=== PATIENT | female | born 1985 | race Asian ===

== ENCOUNTER 2023-09-26 16:09 | Outpatient (CLI) | payer BC, SELFPAY | END 2023-09-26 16:10 | disposition home or self-care (01) | LOC: NFLDREF 16:12 | PROVIDERS: PCP Family Medicine; Visit Provider Registered Nurse | DX: Z01.419 Encounter for gynecological examination (general) (routine) without abnormal findings (principal); Z13.6 Encounter for screening for cardiovascular disorders | CPT/HCPCS: 80061 ==

== ENCOUNTER 2023-11-28 09:23 | Emergency (ER) | payer BC, SELFPAY ==
[2023-11-28 09:28] VITALS: BP 146/82; PULSE 82; RESP 16; TEMP 36.7; O2SAT 99; BMI 24.6
--- NOTE | 2023-11-28 09:48 | XR_ITS ---
Patient: ANDREW Wheeler EM Facility:?[facility] Patient ID:?[id number] Site Patient ID:?[id number]. Site :?[id number] Study:?XRay-Chest PA & LATERAL-11/28/2023 10:19:52 AM Ordering Physician:DANIEL Final Report: Indication: Chest pain Technique: Chest 2 views Comparison: None Findings/Impression: Cardiovascular and mediastinum: Heart size and vasculature are normal in caliber and appearance. Mediastinum is within normal limits. Lungs and pleural spaces: Lungs are clear. No sign of infiltrate or mass. No sign of pleural effusion. No pneumothorax. Bones and soft tissues: No significant findings. Dictated by Sergio Esteban MD @ 11/28/2023 10:41:44 AM Signed by:?Sergio Esteban MD @11/28/2023 10:41:44 AM (Electronic Signature)
--- NOTE | 2023-11-28 10:09 | ED_ITS ---
HPI - Chest Pain General Date Seen: 11/28/23 Chief Complaint: Chest Pain Stated Complaint: Numbness L arm, chest pain, tightness in neck Time Seen by Provider: 11/28/23 09:34 Source: patient Mode of arrival: ambulatory Limitations: no limitations History of Present Illness HPI narrative: Patient is a 38-year-old female presenting for chest pain, left neck pain, left arm numbness and tingling. Patient states for the past 3 days she has been having intermittent chest pain. Usually East occurs in the morning then goes away. Did have a chest pain this morning and has since resolved. She has also been having intermittent left arm numbness and tingling. She has had these arm symptoms before and has had the fully evaluated. They were unable to come up with the diagnosis. She states this feels similar to her previous episodes of arm numbness. She does notice she felt some tightness in the left side of her neck. Took some Tylenol yesterday but has not taken any medicine today. Denies shortness of breath, vision changes, weakness, numbness, abdominal pain, diarrhea, constipation. Did have a headache earlier that has since resolved. Is not currently taking any medications. No previous medical problems. No other concerns noted at this time Related Data Home Medications Medication Instructions Recorded Confirmed No Known Home Medications 06/20/22 09/26/23 Allergies Allergy/AdvReac Type Severity Reaction Status Date / Time No Known Allergies Allergy Unknown Verified 09/26/23 15:43 Review of Systems Status of ROS Reports: 10 or more systems reviewed and unremarkable except as noted in History and below [facility] Medical History Gestational diabetes mellitus (GDM) ?O24.419 - Gestational diabetes mellitus in , unspecified control (ICD-10) Surgical History Status post tubal ligation at time of delivery, current hospitalization ?O80 - Encounter for full-term uncomplicated delivery (ICD-10) ?Z30.2 - Encounter for sterilization (ICD-10) Status post repeat low transverse section ?Z98.891 - History of uterine scar from previous surgery (ICD-10) History of right oophorectomy ?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, unilateral (ICD-10) Family History Mother High blood pressure High cholesterol Social History What is your current living situation?: I presently have a place to live Problems where you live: no known problems In the past 12 months, utilities in danger of being shut off: no In past 12 months, lack of transportation kept you from medical appts, meetings, work, or getting things needed for daily living: no In the past 12 mos, have been you worried that your food would run out before you had money to buy more?: never true In the past 12 mos, the food you bought just didn't last and you didn't have money to buy more?: never true Smoking Status: Never smoker Do you use any of these nicotine containing products: None Second hand tobacco smoke exposure: No How often do you have a drink containing alcohol: never AUDIT-C Alcohol total score: 0 Non-prescribed substance use: denies use How often does anyone, including family, friends and others, physically hurt you : never How often does anyone, including family, friends and others, insult or talk down to you: never How often does anyone, including family, friends and others, threaten you with harm: never How often does anyone, including family, friends and others, scream or curse at you: never Little interest or pleasure in doing things: more than half the days Feeling down, depressed, or hopeless: not at all service: No Exam Narrative Exam Narrative: Const: Well-nourished, Well-developed, in mild distress Eyes: PERRL, no conjunctival injection, and symmetrical lids HENT: Atraumatic external nose and ears. Moist mucous membranes. Neck: Symmetric, trachea midline, No thyromegaly. CVS: RRR, No murmurs or gallops. Peripheral pulses 2+ and equal in all extremities RESP: Unlabored respiratory effort. Clear to auscultation bilaterally. GI: Nontender/Nondistended, No rebound or guarding. MSK:Extremities w/o deformity, Normal Active ROM, no neck tenderness Skin: Warm, Dry. No rashes or lesions. Neuro: Normal Muscle tone, No focal neurological deficits. Psych: Awake, Alert, & Oriented x3. Appropriate mood and affect. Const Vital Signs, click to edit/add: Vital Signs - 24 hr 11/28/23 09:28 Temperature 98.0 F Pulse Rate [Pulse Oximeter] 82 Respiratory Rate 16 Blood Pressure [Right Upper Arm] 146/82 H Pulse Oximetry 99 Oxygen Delivery Method Room Air Course Vital Signs Vital signs: Initial Vital Signs Temperature 98.0 F 11/28/23 09:28 Temperature Source Temporal Artery Scan 11/28/23 09:28 Pulse Rate 82 11/28/23 09:28 Pulse Rhythm Regular 11/28/23 09:28 Respiratory Rate 16 11/28/23 09:28 Blood Pressure 146/82 H 11/28/23 09:28 Blood Pressure Mean 103 11/28/23 09:28 Blood Pressure Position Sitting 11/28/23 09:28 Pulse Oximetry 99 11/28/23 09:28 Oxygen Delivery Method Room Air 11/28/23 09:28 Vital Signs Temperature 98.0 F 11/28/23 09:28 Pulse Rate 82 11/28/23 09:28 Respiratory Rate 16 11/28/23 09:28 Blood Pressure 146/82 H 11/28/23 09:28 Pulse Oximetry 99 11/28/23 09:28 Oxygen Delivery Method Room Air 11/28/23 09:28 Temperature 98.0 F 11/28/23 09:28 Pulse Rate 82 11/28/23 09:28 Respiratory Rate 16 11/28/23 09:28 Blood Pressure 146/82 H 11/28/23 09:28 Pulse Oximetry 99 11/28/23 09:28 Oxygen Delivery Method Room Air 11/28/23 09:28 Medications Administered Medications: Discontinued Medications Generic Name Dose Route Start Last Admin Trade Name Freq PRN Reason Stop Dose Admin Ketorolac Tromethamine 15 mg 11/28/23 10:10 11/28/23 10:34 Ketorolac 15 Mg/Ml Inj IVP 11/28/23 10:11 15 mg ONCE ONE Administration MDM - Chest Pain MDM Narrative Medical decision making narrative: The patient is a 38-year-old female presenting to emergency department for multiple complaints. With left arm numbness and tingling is a chronic issue for her and is not any different than her previous episodes and is not believe it needs further workup at this time. We will evaluate her for chest pain. She is PERC negative and PE is unlikely. Chest x-ray order to look for signs of pneumonia or pneumothorax or other intrathoracic issues. Also ordered a EKG, troponin, CBC, CMP, test, COVID/flu/RSV. Toradol given for the neck pain. She is having no midline tenderness and concerned she might in symptoms have been going on he for a few days so I do not believe I that imaging is necessary. Patient's neck pain went away for the Toradol. She is feeling much better at this time. Lab work all returned showing no concerning symptoms. Hemoglobin sl ightly low but it has been in the 10 range before. I do not believe this is causing her symptoms. She is otherwise doing well at this time. A COVID test flu/RSV is negative. Do not believe there is any emergent causes of her symptoms at this time and she can discharge home with follow-up with the primary care provider if symptoms persist. She is agreeable this bad. Lab Data Labs: Lab Results 11/28/23 11/28/23 Range/Units 10:05 10:39 WBC 6.34 (4.50-11.00) K/uL RBC 4.70 (4.00-5.20) m/uL Hgb 9.4 L (12.0-16.0) gm/dL Hct 32.2 L (33.0-51.0) % MCV 69 L (80-100) fL MCH 20 L (26-34) pg MCHC 29 L (32-36) gm/dL RDW Coeff of Felisa 16.4 H (11.5-15.5) % Plt Count 392 (140-440) K/uL Neut % (Auto) 52.2 (42.0-72.0) % Lymph % (Auto) 37.5 (20-44) % Graham % (Auto) 6.5 (0.0-11.0) % Eos % (Auto) 2.7 (0.0-7.0) % Baso % (Auto) 0.6 (0.0-3.0) % Neut # (Auto) 3.31 (1.7-7.0) K/uL Lymph # (Auto) 2.38 (0.90-2.90) K/uL Graham # (Auto) 0.40 (0.00-0.90) K/UL Eos # (Auto) 0.17 (0.00-0.50) K/uL Baso # (Auto) 0.04 (0.00-0.30) K/uL Abs Immat Gran (auto) 0.03 (0.00-0.30) K/uL Imm/Tot Granulo (auto) 0.5 % Diff Slide Review Acceptable Review (Acceptable) Sodium 139 (135-149) mmol/L Potassium 3.5 L (3.6-5.1) mmol/L Chloride 103 (96-114) mmol/L Carbon Dioxide 25 (20-32) mmol/L Anion Gap 11 (7-15) mEq/L BUN 15 (5-24) mg/dL Creatinine 0.5 (0.5-1.5) mg/dL Estimated Creat Clear 112.86 Estimated GFR 122 ml/min Glucose 96 (60-115) mg/dL Calcium 9.8 (8.4-10.6) mg/dL Total Bilirubin 0.4 (0.1-1.5) mg/dL AST 28 (12-35) U/L ALT 19 (4-35) U/L Alkaline Phosphatase 41 (40-150) U/L Total Protein 8.6 H (6.0-8.3) g/dL Albumin 4.7 (3.3-5.0) g/dL HCG, Qual Negative (Negative) SARS-CoV-2 (PCR) Negative SARS-CoV-2 (Negative) Influenza Type A (PCR) Negative PCR FLU A (Negative) Influenza Type B (PCR) Negative PCR FLU B (Negative) RSV (PCR) Negative PCR RSV (Negative) POC Troponin I 0.00 L (0.01-0.04) ng/ml ECG Data Attestation: I personally reviewed and interpreted this ECG as follows: Prior ECG tracings: not available for review Interpretation: Normal sinus rhythm rate of 70 beats per minute, normal intervals, normal axis, no ST or T-wave abnormalities. Discharge Plan Discharge Clinical Impression: Atypical chest pain, Numbness and tingling in left arm Patient Disposition: Home, Self-Care Condition: Improved Instructions: Noncardiac Chest Pain (ED) Additional Instructions: Follow-up with the primary care provider if symptoms persist. Also talk to your primary care provider about your low hemoglobin. Return to emergency department for new or worsening symptoms. Take Tylenol and ibuprofen for pain. Prescriptions: No Action No Known Home Medications Follow Up/Referrals: Mustapha Torres MD [Primary Care Provider] - Stand Alone Forms: [employer] Info Instructions
[2023-11-28 10:20] LABS: Basophils Absolute Auto 0.04 K/uL (0.00-0.30); Basophils Percent Auto 0.6 % (0.0-3.0); Eosinophils Absolute Auto 0.17 K/uL (0.00-0.50); Eosinophils Percent Auto 2.7 % (0.0-7.0); Hematocrit 32.2 % (33.0-51.0); Hemoglobin* 9.4 gm/dL (12.0-16.0); Immature Granulocytes Abs Auto 0.03 K/uL (0.00-0.30); Immature Granulocytes Pct Auto 0.5 %; Lymphocytes Absolute Auto 2.38 K/uL (0.90-2.90); Lymphocytes Percent Auto 37.5 % (20-44); Mean Corpuscular HGB Conc 29 gm/dL (32-36); Mean Corpuscular Hemoglobin 20 pg (26-34); Mean Corpuscular Volume 69 fL (80-100); Monocytes Percent Auto 6.5 % (0.0-11.0); Neutrophils Absolute Auto 3.31 K/uL (1.7-7.0); Neutrophils Percent Auto 52.2 % (42.0-72.0); Platelet Count* 392 K/uL (140-440); RDW Coefficient of Variation % 16.4 % (11.5-15.5); White Blood Count* 6.34 K/uL (4.50-11.00)
[2023-11-28 10:27] LABS: Slide Review Reflex Yes
[2023-11-28 10:32] LABS: Albumin* 4.7 g/dL (3.3-5.0); Chloride* 103 mmol/L (96-114)
[2023-11-28 10:33] LABS: Potassium* 3.5 mmol/L (3.6-5.1); Sodium* 139 mmol/L (135-149)
[2023-11-28] MEDS: KETOROLAC 15 MG/ML inj IVP (10:34)
[2023-11-28 10:35] LABS: Anion Gap 11 mEq/L (7-15); Bilirubin Total* 0.4 mg/dL (0.1-1.5); Carbon Dioxide* 25 mmol/L (20-32); Creatinine* 0.5 mg/dL (0.5-1.5); Est. Creatinine Clearance* 112.86; Estimated Glomerular Filt Rate 122 ml/min; HCG Qualitative Serum* Negative (Negative)
[2023-11-28 10:36] LABS: Alanine Aminotransferase* 19 U/L (4-35); Alkaline Phosphatase* 41 U/L (40-150); Aspartate Amino Transferase* 28 U/L (12-35); Blood Urea Nitrogen* 15 mg/dL (5-24); Calcium* 9.8 mg/dL (8.4-10.6); Glucose* 96 mg/dL (60-115); Total Protein* 8.6 g/dL (6.0-8.3)
[2023-11-28 10:54] LABS: PCR FLU A Negative PCR FLU A (Negative); PCR FLU B Negative PCR FLU B (Negative); PCR RSV Negative PCR RSV (Negative); SARS PCR* Negative SARS-CoV-2 (Negative)
[2023-11-28 11:09] LABS: Slide Review Acceptable Review (Acceptable)
== END 2023-11-28 11:38 | disposition home or self-care (01) ==
PROVIDERS: Emergency Provider Student in an Organized Health Care Education/Training Program; PCP Family Medicine
DX: R07.9 Chest pain, unspecified (principal); R20.0 Anesthesia of skin
CPT/HCPCS: 36415; 71046; 80053; 84484; 84703; 85025; 87631; 93005; 96374; 99283; 99284; J1885

== ENCOUNTER 2024-08-07 13:58 | Outpatient (CLI) | payer BC, SELFPAY | END 2024-08-07 13:59 | disposition home or self-care (01) | PROVIDERS: PCP Family Medicine; Visit Provider Family Medicine | DX: D64.9 Anemia, unspecified (principal); E87.6 Hypokalemia; F32.A Depression, unspecified | CPT/HCPCS: 80048; 82728; 84443 ==

== ENCOUNTER 2025-09-14 10:40 | Emergency (ER) | payer BC, SELFPAY ==
--- OUTSIDE RECORDS SUMMARY | 2025-09-11 10:30 | XMS_ITS | Encounter Summary ---
Author Organization [place] Address [facility] [place] [address] Care Team Providers Care [employer] Cafeteria Cook Name Role Phone No Ref-Primary, Physician Primary Care Provider Reason for Referral * Consultation (Emergency: 1-2 Days) - Pending ReviewSpecialtyDiagnoses / ProceduresReferred By ContactReferred To ContactOphthalmology Diagnoses Herpes zoster with ophthalmic complication, unspecified herpes zoster eye disease Dilma Garcia, MANAGER OF MANUFACTURING [address] [place] [address] Phone: tel: fax: [facility] Ref'[address] [address] Phone: tel: Referral IDStatusReasonStart DateExpiration DateVisits RequestedVisits [id number] [id number] Referral Type: Optometry/Ophthalmology Reason for Referral: Other My Clinical Question Is: shingles around eye Patient Scheduling Instructions: [facility] will call you to coordinate your care as prescribed by your provider. If you don't hear from a business development representative within 2 business days, please call . Comments Please be aware that coverage of these services is subject to the terms and limitations of your health insurance plan. Call member services at your health plan with any benefit or coverage questions. [facility] will call you to coordinate your care as prescribed by your provider. If you don't hear from a business development representative within 2 business days, please call . UCT SAFETY PROFESSIONAL Reason for Visit * ReasonCommentsPain Encounter Details DateTypeDepartmentCare Team (Latest Contact Info)Khotnlitntd15/11/2025 10:30 AM CSTOffice Visit M [facility] [place] [address] [place] [phone] Dilma Garcia NP [address] [place] [address] Herpes zoster with ophthalmic complication, unspecified herpes zoster eye disease (Primary Dx); Otorrhea of right ear Social History Tobacco UseTypesPacks/DayYears UsedDateSmoking Tobacco: NeverPassive Smoke Exposure: NeverSmokeless Tobacco: Never Tobacco Cessation:Counseling Given: No PHQ-2AnswerDate RecordedPHQ-2 Cwybb36411/12/2024dolescent EducationAnswerDate RecordedGetting School Help NeededNot on file11/28/2023Food InsecurityAnswerDate RecordedWithin the past 12 months, did you worry that your food would run out before you got money to buy more?No09/11/2025Within the past 12 months, did the food you bought just not last and you didn???t have money to getmore?No 09/11/2025Housing StabilityAnswerDate RecordedDo you have housing? (Housing is defined as stable permanent housing and does not include staying outside in a car, in a tent, in an abandoned building, in an overnight prison, or couch-surfing.)No09/11/2025re you worried about losing your housing?No 09/11/2025Financial Resource StrainAnswerDate RecordedWithin the past 12 months, have you or your family members you live with been unable to get utilities (heat, electricity) when it was really needed?No09/11/2025Transportation Needs AnswerDate RecordedWithin the past 12 months, has lack of transportation kept you from medical appointments, getting your medicines, non-medical meetings or appointments, work, or from getting things that you need?No12/08/2025 Interpersonal SafetyAnswerDate RecordedDo you feel physically and emotionally safe where you currently live?Yes09/11/2025Within the past 12 months, have you been hit, slapped, kicked or otherwise physically hurt by someone?No09/11/2025 Within the past 12 months, have you been humiliated or emotionally abused in other ways by your partner or ex-partner?No09/11/2025CommentsNoSex and Gender InformationValueDate RecordedSex Assigned at BirthNot on fileLegal Sex Buromr3111/28/2023 7:46 AM CSTGender IdentityNot on fileSexual OrientationNot on filedocumented as of this encounter Last Filed Vital Signs Vital SignReadingTime TakenCommentsBlood Kvmhpgvl765/8209/11/2025 10:32 AM PRODUCT SAFETY PROFESSIONAL Pnwvt963909/11/2025 10:32 AM ZMVFhecgezoazc82.7 ??C (98 ??F)09/11/2025 10:32 AM CSTRespiratory Yjen087711/12/2024 10:32 AM CSTOxygen Ppsmrsmyfp077%09/11/2025 10:32 AM CSTInhaled Oxygen Concentration--Ftwmbq89 kg (132 lb 3.2 oz)09/11/2025 10:32 AM CXQQlbopt056.4 cm (5')09/11/2025 10:32 AM CSTBody Mass Index25.82 09/11/2025 10:32 AM CSTdocumented in this encounter Patient Instructions * Patient Instructions* Dilma Garcia NP - 09/11/2025 10:30 AM PRODUCT SAFETY PROFESSIONAL Antiviral medication 3x per day for 1 week 10:15 am appointment on 09/12/25 at [facility] [place] [address] [facility] [place] [address] UCT SAFETY PROFESSIONAL UCT SAFETY PROFESSIONAL UCT SAFETY PROFESSIONAL UCT SAFETY PROFESSIONAL * Attachments The following attachments cannot be sent through Care Everywhere. * Shingles ([place]) documented in this encounter Progress Notes * Dilma Garcia NP - 09/11/2025 10:30 AM CST Assessment & Plan Herpes zoster with ophthalmic complication, unspecified herpes zoster eye disease: - Herpes zoster involving the ophthalmic region, with concern for ocular involvement. - Prescribed valacyclovir (Valtrex) to be taken three times daily for one week. Referral placed forophthalmology evaluation. Appointment scheduled with hide curer for September 12, 2025, at 10:15 AM in [place] at [facility]. Stressed importance of keeping this visit. Instructed to startantiviral therapy today. - Risks and side effects: Discussed potential for nausea and unusual dreams with valacyclovir; advised to take medication with food. Informed of risk of varicella transmission to individuals without prior chickenpox exposure, especially young children. Consent given for treatment plan and ophthalmology referral. Otorrhea of Right ear -resolved Consent was obtained from the patient to use an AI documentation tool in the creation of this note. Juancarlos Melendez is a 40 year old, presenting for the following health issues: Pain 09/11/2025 10:30 AM Additional Questions Roomed by Annamaria MCLEOD Accompanied by Self 09/11/2025 10:30 AM Patient Reported Additional Medications Patient reports taking the following new medications NA Musculoskeletal Problem This is a new problem. The current episode started in the past 7 days. The problem occurs intermittently. The problem has been unchanged. Associated symptoms include a fever and headaches. Pertinent negatives include no abdominal pain, anorexia, arthralgias, change in bowel habit, chest pain, chills, congestion, coughing, diaphoresis, fatigue, joint swelling, myalgias, nausea, neck pain, numbness, rash, sore throat, swollen glands, urinary symptoms, vertigo, visual change, vomiting or weakness.Nothing aggravates the symptoms. She has tried acetaminophen, NSAIDs and relaxation (massgae) for the symptoms. The treatment provided mild relief. History of Present Illness Reason for visit: Pain on right side of my face,head,eye,neck and ear Symptom onset: 1-3 days ago Symptoms include: Small blester bump on my eyebrow causing pain Symptom intensity: Moderate Symptom progression: Staying the same Had these symptoms before: No Prior treatment description: NA What makes it worse: Pain on my eye and head What makes it better: No She eats 4 or more servings of fruits and vegetables daily.She consumes 0 sweetened beverage(s) daily.She exercises with enough effort to increase her heart rate 30 to 60 minutes per day. She exercises with enough effort to increase her heart rate 5 days per week. She is missing 1 dose(s) of medications per week. She is not taking prescribed medications regularly due to remembering to take. Nora Cunningham, 40-year-old female - Severe right ear pain starting around 2024, unable to touch or lay on ear - Seen at [facility], prescribed oral antibiotics, eardrops, and prednisone - Green and white drainage and bleeding from right ear developed a few days after starting treatment - Ear pain improved after 5 days of antibiotics, completed course, no current drainage, but persistent dry scab, mild pain, and occasional bleeding inside ear - Onset of right facial pain, pressure, and muscle ache above right eye, cheekbone, and side of head beginning September 092024 - Development of small, painful bump on right side of face - Burning sensation and pain in right eyeball, watery right eye - Mild generalized muscle aches - Reports possible fever Objective BP 129/82 (BP Location: Right arm, Patient Position: Sitting, Cuff Size: Adult Regular) Pulse 70 Temp 98 ??F (36.7 ??C) (Temporal) Resp 17 Ht 1.524 m (5') Wt 60 kg (132 lb 3.2 oz) LMP (LMP Unknown) SpO2 100% BMI 25.82 kg/m?? Body mass index is 25.82 kg/m??. Physical Exam GENERAL: alert and no distress EYES: EOMI and conjunctivae and sclerae normal, R upper mid eyebrow with erythematous vesicles, tender to touch HENT: ear canals and TM's normal, nose and mouth without ulcers or lesions NECK: bilateral anterior cervical adenopathy Signed Electronically by: Dilma Garcia NP UCT SAFETY PROFESSIONAL documented in this encounter Plan of Treatment NameTypePriorityAssociated DiagnosesOrder ScheduleAdult Eye Interior Plant Caretaker Referral ReferralEmergency: 1-2 Days Herpes zoster with ophthalmic complication, unspecified herpes zoster eye disease Expected: 09/11/2025 (Approximate), Expires: 09/11/2026documented as of this encounter Visit Diagnoses Diagnosis Herpes zoster with ophthalmic complication, unspecified herpes zoster eye disease- Primary Otorrhea of right ear Otorrhea, unspecified documented in this encounter Care Teams Team MemberRelationshipSpecialtyStart DateEnd Date No Ref-Primary, Physician PCP - Syqobuh11/11/25documented as of this encounter
[2025-09-14 10:42] VITALS: BP 138/77; PULSE 79; RESP 18; TEMP 36.8; O2SAT 98
--- OUTSIDE RECORDS SUMMARY | 2025-09-14 10:42 | XMS_ITS | Clinical Summary ---
Author Organization [facility] Address [address] [place] [address]. [place] [address] Care Team Providers Care Player Manager Name Role Phone No Ref-Primary, Physician Primary Care Provider Allergies No known active allergies Medications MedicationSigDispense QuantityRefillsLast FilledStart DateEnd DateStatus cetirizine (ZYRTEC) 10 MG tablet TAKE 1 TABLET BY MOUTH EVERY DAY NEEDED FOR ALLERGY IURJFEMW39/28/2025Active valACYclovir (VALTREX) 1 g tablet Indications:Herpes zoster with ophthalmic complication, unspecified herpes zoster eye diseaseTake 1 tablet (1,000 mg) by mouth 3 times daily. 21 tablet /5Active amoxicillin (AMOXIL) 875 MG tablet Take 1 tablet by mouth 2 times daily.Discontinued ciprofloxacin-dexAMETHasone (CIPRODEX) 0.3-0.1 % otic suspension SHAKE LIQUID AND INSTILL 4 DROPPERFUL TO AFFECTED EAR TWICE DAILY FOR 7 DAYS /08/2025Discontinued predniSONE (DELTASONE) 20 MG tablet Take 1 tablet by mouth 2 times daily.Discontinued HYDROcodone-acetaminophen (NORCO) 5-325 MG tablet Take 1-2 tablets by mouth every 6 hours as needed for pain./08/2025 Discontinued Encounters DateTypeDepartmentCare RgtqBsmgoitvqjp43/11/2025 10:30 AM CSTOffice Visit M [address] [place] [address] Dilma Garcia, SWITCHBOARD MECHANIC Herpes zoster with ophthalmic complication, unspecified herpes zoster eye disease (Primary Dx); Otorrhea of right ear09/11/2025Travelfrom Last 3 Months Social History Tobacco UseTypesPacks/DayYears UsedDateSmoking Tobacco: NeverPassive Smoke Exposure: NeverSmokeless Tobacco: Never Tobacco Cessation:Counseling Given: No PHQ-2AnswerDate RecordedPHQ-2 Gvrds84711/12/2024dolescent EducationAnswerDate RecordedGetting School Help NeededNot on file11/28/2023Food [...] in an abandoned building, in an overnight retirement, or couch-surfing.)No09/11/2025re you worried about losing your [...] work, or from getting things that you need?No09/11/2025 Interpersonal SafetyAnswerDate RecordedDo you feel physically and emotionally safe where you currently live?Yes09/11/2025Within the past 12 months, have you been hit, slapped, kicked or otherwise physically hurt by someone?No09/11/2025 Within the past 12 months, have you been humiliated or emotionally abused in other ways by your partner or ex-partner?No09/11/2025CommentsNoSex and Gender InformationValueDate RecordedSex Assigned at BirthNot on fileLegal Sex Uqdjfh2711/28/2023 7:46 AM CSTGender IdentityNot on fileSexual OrientationNot on file Last Filed Vital Signs Vital SignReadingTime TakenCommentsBlood Vyauojdi209/8209/11/2025 10:32 AM HOTEL SERVICES SUPERVISOR Viaxl606009/11/2025 10:32 AM ZDTFayqseuleys03.7 ??C (98 ??F)09/11/2025 10:32 AM CSTRespiratory Dqoe649211/12/2024 10:32 AM CSTOxygen Yillbuqyqj850%09/11/2025 10:32 AM CSTInhaled Oxygen Concentration--Vircjd53 kg (132 lb 3.2 oz)09/11/2025 10:32 AM YTEJykmyk956.4 cm (5')09/11/2025 10:32 AM CSTBody Mass Index25.82 09/11/2025 10:32 AM HOTEL SERVICES SUPERVISOR Plan of Treatment Health MaintenanceDue DateLast DoneCommentsADVANCE CARE NLPLOLMN1983ANNUAL REVIEW OF HM MGDZMM6006/08/1983DIABETES RHCIEHVIO1983MAMMO SCREENING 1983YEARLY PREVENTIVE VISIT1986HIV YCVCLDPEU39/07/1998HEPATITIS C KPZQQOHZC39/07/2001HEPATITIS B VACCINE (1 of 3 - 19+ 3-dose series)2002PAP 06/08/20042842PGJMO98/07/2023COVID-19 VACCINE ( season)2025 09/12/2023, 06/02/2021, 05/05/2021INFLUENZA VACCINE (#1)510/11/2023, 09/12/2023, 07/26/2022, Additional history existsDTAP/TDAP/TD VACCINE (2 - Td or Tdap)602/09/2016ZOSTER VACCINE (1 of 2)3PHQ-2 (once per calendar year)Gaxtzjrmb03/11/2025HPV VACCINE (No Doses Required)Completed MENINGITIS VACCINEAged OutNo longer eligible based on patient's age to complete this topicPNEUMOCOCCAL VACCINE: PEDIATRICS (0 to 5 YEARS) AND AT-RISK PATIENTS (6 to 49 YEARS)Aged OutNo longer eligible based on patient's age to complete this topic Insurance Care Teams Team MemberRelationshipSpecialtyStart DateEnd Date No Ref-Primary, Physician PCP - Qjthvus17/11/25
--- OUTSIDE RECORDS SUMMARY | 2025-09-14 10:42 | XMS_ITS | Encounter Summary ---
Author Organization [facility] Address [address] [place] [address]. [place] [address] Care Team Providers Care Market Development Trainer Name Role Phone No Ref-Primary, Physician Primary Care Provider Encounter Details DateTypeDepartmentCare Team (Latest Contact Info)Qcbydzyorey37/11/2025Travel Social History Tobacco UseTypesPacks/DayYears UsedDateSmoking Tobacco: NeverPassive Smoke Exposure: NeverSmokeless Tobacco: NeverPHQ-2AnswerDate RecordedPHQ-2 Score0 09/11/2025dolescent EducationAnswerDate RecordedGetting School Help NeededNot on file11/28/2023Food InsecurityAnswerDate RecordedWithin the past 12 months, did you worry that your food would run out before you got money to buy more?No 09/11/2025Within the past 12 months, did the food you bought just not last and you didn???t have money to getmore?No09/11/2025Housing StabilityAnswerDate RecordedDo you have housing? (Housing is defined as stable permanent housing and does not include staying outside in a car, in a tent, in an abandoned building, in an overnight snf, or couch-surfing.)No09/11/2025re you worried about losing your housing?No09/11/2025Financial Resource StrainAnswerDate Recorded Within the past 12 months, have you or your family members you live with been unable to get utilities (heat, electricity) when it was really needed?No 09/11/2025Transportation NeedsAnswerDate RecordedWithin the past 12 months, has lack of transportation kept you from medical appointments, getting your medicines, non-medical meetings or appointments, work, or from getting things that you need?No09/11/2025Interpersonal SafetyAnswerDate RecordedDo you feel physically and emotionally safe where you currently live?Yes09/11/2025Within the past 12 months, have you been hit, slapped, kicked or otherwise physically hurt by someone?No09/11/2025Within the past 12 months, have you been humiliated or emotionally abused in other ways by your partner or ex-partner?No09/11/2025 CommentsNoSex and Gender InformationValueDate RecordedSex Assigned at BirthNot on fileLegal MhvLixdpa62/27/2024 7:46 AM CSTGender IdentityNot on file Sexual OrientationNot on filedocumented as of this encounter Plan of Treatment Not on file documented as of this encounter Visit Diagnoses Not on filedocumented in this encounter Care Teams Team MemberRelationshipSpecialtyStart DateEnd Date No Ref-Primary, Physician PCP - Dlnqasi00/11/25documented as of this encounter
--- NOTE | 2025-09-14 10:48 | ED_ITS ---
HPI - Skin/Abscess/Foreign Bdy General Time Seen by Provider: 10:48 Date Seen: 09/14/25 Chief complaint: Skin/Abscess/Foreign Body Stated complaint: shingles getting worse Time Seen by Provider: 09/14/25 10:48 Source: patient, RN notes reviewed and old records reviewed Mode of arrival: ambulatory Limitations: no limitations History of Present Illness HPI narrative: Nora is a very pleasant 40 year old female with recently diagnosed shingles affecting her right forehead who comes to the [facility] for evaluation regarding worsening symptoms. Patient noted that she was started on Valtrex on September 11. The following day she met with Ophthalmology at which time there was no evidence of shingles in the I and patient was placed under a throughout my son eye ointment. Unfortunately, there have been more lesions that have now popped up and patient is having a hard time sleeping. Patient has also noticed that her eye is more red and uncomfortable. No visual deficits at this time. vision right eye 20/40 left eye 20/25. Related Data Home Medications ?Medication ?Instructions ?Recorded ?Confirmed erythromycin 5 mg/gram (0.5 %) eye ophthalmic (eye-rig ht) BID 09/14/25 ointment valacyclovir 1 gram tablet 1,000 mg PO 3XD 09/14/25 Previous Rx's ?Medication ?Instructions ?Recorded cetirizine 10 mg tablet (Zyrtec) 10 mg PO QDAY PRN all ergy symptoms 08/29/25 #90 tabs prednisone 20 mg tablet 20 mg PO BID #10 tabs gabapentin 100 mg capsule 100 mg PO TID #100 caps 09/01 01/24 hydrocodone 5 mg-acetaminophen 325 1 tab PO Q4-6H PRN pain #20 tabs 09/14/25 mg tablet ofloxacin 0.3 % eye drops (Ocuflox) 1 drp ophthalmic ( eye) QID #5 mL 09/14/25 prednisone 20 mg tablet 60 mg (3 x 20 mg) PO DAILY # 21 tabs 09/14/25 Allergies Allergy/AdvReac Type Severity Reaction Status Date / Time No Known Drug Allergies Allergy Verified 09/14/25 10:46 Review of Systems Status of ROS: Reports: 6 or more systems reviewed and unremarkable except as noted in History and below Const: Denies: fever Eyes: Reports: eye discomfort and eye discharge; Denies: change in vision Integ/Breast: Reports: rash, itching, skin pain, skin tenderness, sores and new lesion PFSH PFSH Medical History Gestational diabetes mellitus (GDM) ?O24.419 - Gestational diabetes mellitus in , unspecified control (ICD-10) Surgical History Status post tubal ligation at time of delivery, current hospitalization ?O80 - Encounter for full-term uncomplicated delivery (ICD-10) ?Z30.2 - Encounter for sterilization (ICD-10) Status post repeat low transverse section ?Z98.891 - History of uterine scar from previous surgery (ICD-10) History of right oophorectomy ?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, unilateral (ICD-10) Family History Mother High blood pressure High cholesterol Social History What is your current living situation?: I presently have a place to live Problems where you live: no known problems In the past 12 months, utilities in danger of being shut off: no In past 12 months, lack of transportation kept you from medical appts, meetings, work, or getting things needed for daily living: no In the past 12 mos, have been you worried that your food would run out before you had money to buy more?: never true In the past 12 mos, the food you bought just didn't last and you didn't have money to buy more?: never true Smoking Status: Never smoker Do you use any of these nicotine containing products: None Second hand tobacco smoke exposure: No How often do you have a drink containing alcohol: never AUDIT-C Alcohol total score: 0 Non-prescribed substance use: denies use How often does anyone, including family, friends and others, physically hurt you : never How often does anyone, including family, friends and others, insult or talk down to you: never How often does anyone, including family, friends and others, threaten you with harm: never How often does anyone, including family, friends and others, scream or curse at you: never service: No Exam Narrative: Exam Narrative: Alert and oriented. EOM is full and pupils are equal round and reactive. No pain with direct or consensual light reflex. Multiple lightly erythematous lesions on forehead. A few with fluid. One in eyebrow that has broken open is not starting to scab. Tenderness noted on the frontal scalp but no significant lesions noted. Some mild swelling around the right eye. No obvious lesions. Slight redness in the Medial and lateral canthus. No purulent discharge but there is tearing. Face symmetrical with eyebrow raise and smile. Oral cavity moist mucous membranes no lesions on lips. no respiratory distress. Moving all extremities. with room darkened and using light I do not note any obvious corneal defects. With floor signs staining and slit lamp I do see a very small dendritic lesion at approximately the 1 o'clock position on the peripheral area of the cornea. Const: Vital Signs, click to edit/add: Vital Signs - 24 hr 09/14/25 10:42 Temperature 98.3 F Pulse Rate [Right Pulse Oximeter] 79 Respiratory Rate 18 [facility] 138/77 Pulse Oximetry 98 Oxygen Delivery Me thod Room Air Documenting provider has reviewed patient's vital signs: yes Course Course ED Course: differential diagnosis includes but is not limited to corneal involvement with shingles, allergic reaction to erythromycin. Will obtain floor sign staining and slit lamp examination. If positive for ocular involvement will need to start on prednisone. For pain she may need narcotic and O or neuro modulator. Will also speak to Ophthalmology on-call. Consultations Consultation #1: I had the pleasure of speaking with Ophthalmology from [facility]. They had seen this patient on MondaySeptember 11 and at that time there was no ocular involvement. Patient was placed on erythromycin. Fortunately, we do have eye involvement today. Lesion is noted to be very peripheral. Suggestion is to continue erythromycin or if they would want a drop to use Ocuflox. Suggest follow-up on Monday if worsening and MondaySeptember 16 if stable. Vital Signs Vital signs: Initial Vital Signs Temperature 98.3 F 09/14/25 10:42 Temperature Source Oral 09/14/25 10:42 Pulse Rate 79 09/14/25 10:42 Pulse Rhythm Regular 09/14/25 10:42 Pulse Strength 3+ Normal 09/14/25 10:42 Respiratory Rate 18 09/14/25 10:42 Blood Pressure 138/77 09/14/25 10:42 Blood Pressure Mean 97 09/14/25 10:42 Blood Pressure Position Sitting 09/14/25 10:42 Pulse Oximetry 98 09/14/25 10:42 Oxygen Delivery Method Room Air 09/14/25 10:42 Vital Signs Temperature 98.3 F 09/14/25 10:42 Pulse Rate 79 09/14/25 10:42 Respiratory Rate 18 09/14/25 10:42 Blood Pressure 138/77 09/14/25 10:42 Pulse Oximetry 98 09/14/25 10:42 Oxygen Delivery Method Room Air 09/14/25 10:42 Temperature 98.3 F 09/14/25 10:42 Pulse Rate 79 09/14/25 10:42 Respiratory Rate 18 09/14/25 10:42 Blood Pressure 138/77 09/14/25 10:42 Pulse Oximetry 98 09/14/25 10:42 Oxygen Delivery Method Room Air 09/14/25 10:42 MDM - Skin/Abscess/Foreign Bdy MDM Narrative Medical decision making narrative: 1. Acute neuropathic pain from shingles - at this time will have patient use ibuprofen 600 mg p.o. t.i.d.. Recommend pushing fluids and staying well hydrated. Will give patient Chester 5/325 to be used 1-2 tabs p.o. q.4-6 hours p.r.n. pain not relieved by ibuprofen as she has been having a hard time sleeping. Have discussed side effects such as constipation nausea as well. Have cautioned against use with other sedating medications and driving. Will also add gabapentin 100 mg p.o. t.i.d. to increase to a total of 300 mg t.i.d.. I am hoping he this helps her neuropathic pain. Further pain medications will need to go through primary Physician. Chester and gabapentin sent to her pharmacy. 2. Shingles with ocular involvement- ophthalmology consult with [facility]. Will change erythromycin to Ocuflox eyedrops but should they not have insurance coverage for this and they would not want to pay will need to revert back to erythromycin ointment. because of eye involvement this is now complicated shingles and thus, will start prednisone. 60 mg daily for 7 days. 3.Disposition -home at this time. Have written a note for work as Nora is contagious to anybody who has not had chickenpox and of course high wrist to a woman who has not had chickenpox or the vaccine. She is contagious until all of this blisters have broken open and scabbed. She should return for worsening symptoms and definitely follow-up as we discussed with Ophthalmology. Medical Records Attestation: I reviewed the patient's medical records. Discharge Plan Discharge Clinical Impression: Acute pain associated with herpes zoster, Herpes zoster dermatitis with ophthalmic complication Patient Disposition: Home, Self-Care Condition: Unchanged Additional Instructions: 1. For eye involvement of shingles: a. will prescribed Ocuflox an eye drop in place of erythromycin ointment. However, should your insurance not pay for it or you find too expensive you will need to use the ointment instead. b. Start prednisone as anti-inflammatory. Take with food. c. Follow-up with your eye clinic by calling for an appointment tomorrow. Ideally if improving follow-up on MondaySeptember 16. If you are actually worsening follow-up tomorrow. 2. For pain because of shingles: a.Ibuprofen 600 mg every 8 hours as needed. Make sure you are pushing fluids And stay well hydrated b.Chester which is a combination medication of the narcotic called hydrocodone and Tylenol may be used for pain not relieved by ibuprofen. Unfortunately this can cause nausea so take it with food. This can also cause constipation so you may want to start a stool softener. Should not drive or use any other sedating medications if using Chester. c. Start gabapentin - this is a neuro modulator which should help with nerve pain. It can also be sedating. Return to the ER for worsening symptoms and as needed. Prescriptions: New prednisone 20 mg tablet 60 mg PO DAILY Qty: 21 0RF ofloxacin [Ocuflox] 0.3 % drops 1 drp ophthalmic (eye) QID Qty: 5 0RF hydrocodone-acetaminophen 5-325 mg tablet 1 tab PO Q4-6H PRN (Reason: pain) Qty: 20 0RF Rx Instructions: may use 1-2 tabs p.o.q 4-6 hours p.r.n. pain gabapentin 100 mg capsule 100 mg PO TID Qty: 100 0RF Rx Instructions: day 1: 100 mg t.i.d. day 2 200 mg t.i.d. day 3 300 mg t.i.d. No Action prednisone 20 mg tablet 20 mg PO BID Qty: 10 0RF cetirizine [Zyrtec] 10 mg tablet 10 mg PO QDAY PRN (Reason: allergy symptoms) Qty: 90 0RF valacyclovir 1 gram tablet 1,000 mg PO 3XD erythromycin 5 mg/gram (0.5 %) ointment ophthalmic (eye-right) BID Follow Up/Referrals: Mustapha Torres MD [Primary Care Provider, Family Practice] Stand Alone Forms: InThrMa Info Instructions
== END 2025-09-14 12:09 | disposition home or self-care (01) ==
PROVIDERS: Emergency Provider Family Medicine; PCP Family Medicine
DX: B02.30 Zoster ocular disease, unspecified (principal)
CPT/HCPCS: 99284